=== PATIENT | female | born 1955 | race Caucasian/White ===

== ENCOUNTER 2019-10-10 11:49 | Emergency (ER) | payer BC ==
[2019-10-10 11:54] VITALS: BP 123/68; PULSE 76; TEMP 97.5; BMI 28.0
--- NOTE | 2019-10-10 12:41 | PDOC ---
History of Present Illness - General Chief Complaint: Shortness of Breath Stated Complaint: Shortness of Breath Time Seen by Provider: 10/10/19 12:41 History Source: Patient, Primary Care Provider (Morales) Exam Limitations: No Limitations - History of Present Illness Initial Comments: 10/10/19 12:41 Ania Packer is a 64F with PMH HTN, HLD, Johnathon thyroiditis sent from D Morales office for difficulty breathing. Per Dr. Nielsen, patient came to his office today for routine evaluation and appeared severely short of breath, with pain in her left upper back that was described as deep inside, was immediately concerned for PE and sent patient to ED. Per patient, she had been walking up 3 flights of stairs and became reasonably tired. For the last few days has been cleaning boxes and doing heavy lifting which is the cause of her upper back pain. Exercises routinely and is able to walk long distances without SOB, but finds steep slopes challenging. Denies ever having chest pain, palpitations. No prior cardiac history. Denies lower extremity swelling. Denies asthma, COPD, smoking history, but per chart review from several years ago has COPD. Denies long-distance travel, clotting disorders. 15 years ago had hormone use for menopause, has stopped years ago. 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 NKDA Daily medications thyroid medication, anti-HTN med, statin Past History - Past Medical History Allergies/Adverse Reactions: Allergies Allergy/AdvReac Type Severity Reaction Status Date / Time No Known Allergies Allergy Verified 10/10/19 11:54 Home Medications: Ambulatory Orders Albuterol Sulfate Inhaler - [Ventolin HFA Inhaler -] 1 - 2 inh PO QID PRN #1 inhaler 05/03/16 Anemia: No Asthma: No Cancer: No Cardiac Disorders: No CVA: No COPD: No CHF: No Dementia: No Diabetes: No GI Disorders: Yes ("NERVOUS STOMACH") Disorders: No HTN: No Hypercholesterolemia: Yes Liver Disease: No Seizures: No Thyroid Disease: No - Surgical History Abdominal Surgery: Yes (TUBAL LIGATION) Appendectomy: No Cardiac Surgery: No Cholecystectomy: No Lung Surgery: No Neurologic Surgery: No Orthopedic Surgery: Yes (RIGHT KNEE ARTHROSCOPY) - Psycho Social/Smoking Cessation Hx Smoking Status: No Smoking History: Former smoker Have you smoked in the past 12 months: No Number of Cigarettes Smoked Daily: 0 If you are a former smoker, when did you quit?: 2006 Information on smoking cessation initiated: No Hx Alcohol Use: No Drug/Substance Use Hx: No Substance Use Type: None Hx Substance Use Treatment: No Review of Systems - Review of Systems Able to Perform ROS?: Yes Constitutional: No: Chills, Fever, Weakness HEENTM: No: Eye Pain, Blurred Vision, Ear Discharge, Hearing Loss Respiratory: Yes: SOB with Exertion. No: Cough, Shortness of Breath, Stridor, Wheezing, Productive cough Cardiac (ROS): No: Chest Pain, Irregular Heart Rate, Lightheadedness, Palpitations, Chest Tightness ABD/GI: No: Constipated, Diarrhea, Nausea, Poor Appetite, Poor Fluid Intake, Vomiting : No: Dysuria, Discharge, Frequency, Flank Pain, Hematuria, Incontinence Musculoskeletal: No: Muscle Pain, Muscle Weakness Neurological: No: Headache, Numbness, Paresthesia, Weakness, Ataxia, Dizziness Endocrine: No: Symptoms Reported Hematologic/Lymphatic: No: Symptoms Reported All Other Systems: Reviewed and Negative *Physical Exam - Vital Signs Last Vital Signs Temp Pulse Resp BP Pulse Ox 97.5 F L 76 19 123/68 98 10/10/19 11:52 10/10/19 11:52 10/10/19 11:52 10/10/19 11:52 10/10/19 11:52 - Physical Exam General Appearance: Yes: Nourished, Appropriately Dressed, Other (irritated- appearing, standing in room, breathing well on RA). No: Apparent Distress HEENT: positive: EOMI, BROOKE, Normal Voice, Symmetrical, Pharynx Normal. negative: Scleral Icterus (R), Scleral Icterus (L), Pharyngeal Erythema, Tonsillar Exudate, Tonsillar Erythema Neck: positive: Trachea midline, Normal Thyroid, Supple. negative: Tender, Rigid, Lymphadenopathy (R), Lymphadenopathy (L), Tender lateral, Tender midline Respiratory/Chest: positive: Lungs Clear, Normal Breath Sounds. negative: Chest Tender, Respiratory Distress, Accessory Muscle Use, Crackles, Rales, Rhonchi, Stridor, Wheezing Cardiovascular: positive: Regular Rhythm, Regular Rate. negative: Murmur Gastrointestinal/Abdominal: positive: Normal Bowel Sounds, Flat, Soft. negative : Tender, Pulsatile Mass, Guarding, Rebound, Tenderness Musculoskeletal: positive: Normal Inspection. negative: CVA Tenderness, Vertebral Tenderness Extremity: positive: Normal Capillary Refill, Normal Inspection, Normal Range of Motion, Pelvis Stable. negative: Tender, Pedal Edema, Swelling Integumentary: positive: Normal Color, Dry, Warm. negative: Cyanotic, Cold, Clammy, Ecchymosis Neurologic: positive: Fully Oriented, Alert, Normal Mood/Affect, Normal Response ED Treatment Course - LABORATORY CBC & Chemistry Diagram: 10/10/19 13:30 10/10/19 13:30 Medical Decision Making - Medical Decision Making 10/10/19 13:36 Patient sent from PMD office for concern about PE and SOB with exertion. Patient herself denies any chest pain, SOB at rest, pulmonary history. Chart has history of COPD but not wheezing at this time. Has history of hormone use, but no long distance travel or cancer, cannot PERC. VS WNL in ED, physical exam unremarkable. CTA considered given PMD concern, but patient history not supportive of PE diagnosis. Will obtain D-dimer preliminarily for low-risk Wells. - CMP/CBC for eval lytes and infection - D-dimer for low risk Wells - ECG/CXR for cardiomegaly/pulmonary evaluation 10/10/19 13:45 ECG shows NSR with HR 79, QRS 74, QTc 433, no ischemic changes. 10/10/19 14:30 D-dimer 445, WNL for age. Patient stressed by walking up and down the ED, O2sat 100% and no wheezing noted before or after. Discussed results with patient, stable for discharge. Called Dr. Nielsen, agrees with results and plan for office f/u. Discharge - Discharge Information Problems reviewed: Yes Clinical Impression/Diagnosis: Shortness of breath Condition: Stable - Follow up/Referral Referrals: Grady Nielsen MD [Primary Care Provider] - - Patient Discharge Instructions Patient Printed Discharge Instructions: DI for Shortness of Breath Additional Instructions: Today you were evaluated for shortness of breath. Your labs do not show any problems or blood clot risk. Your x-ray and ECG results are normal. Please continue to follow-up with Dr. Nielsen in the next week for further care. If you experience leg swelling, difficulty breathing, chest pain, coughing, or any other new or concerning symptoms, please return to the emergency room. - Post Discharge Activity
--- NOTE | 2019-10-10 13:45 | PDOC ---
Documentation entered by Gianna Argueta SCRIBE, acting as scribe for Janes Emerson MD. Janes Emerson MD: This documentation has been prepared by the Ellie najera Adrianna, SCRIBE, under my direction and personally reviewed by me in its entirety. I confirm that the documentation accurately reflects all work, treatment, procedures, and medical decision making performed by me. Attending Attestation - Resident Resident Name: Jason Daugherty - ED Attending Attestation I have performed the following: I have examined & evaluated the patient, The case was reviewed & discussed with the resident, I agree w/resident's findings & plan, Exceptions are as noted - HPI HPI: The patient is a 64 year old female, with a significant PMH of HTN, HLD, and Hashimotos, who presents to the ED by her PCP to rule out PE. Dr. Nielsen saw the patient in office earlier today for routine check up, and found the patient to be short of breath with deep left upper back pain. She denies any chest pain or leg swelling at this time. Allergies: NKA, NKDA Surgical History: Tubal ligation, right knee arthroscopy Social History: Former smoker (quit 13 years ago). No toxic habits PCP: Dr. Nielsen - Physicial Exam PE: 10/10/19 13:44 EXAMINATION CONSTITUTIONAL: Well-appearing; well-nourished; in no apparent distress HEAD: Normocephalic; atraumatic EYES: PERRL; EOM intact ENMT: External appears normal; normal oropharynx NECK: Supple; non-tender; no cervical lymphadenopathy CARD: Normal S1, S2; no murmurs, rubs, or gallops RESP: Normal chest excursion with respiration; breath sounds clear and equal bilaterally; no wheezes, rhonchi, or rales ABD: Soft, non-distended; non-tender; no palpable organomegaly, no palpable hernias EXT: Normal ROM in all four extremities; non-tender to palpation; distal pulses intact SKIN: Warm, dry, no rash NEURO: No focal neurological deficiencies. - Medical Decision Making 10/10/19 13:44 Patient is a well-appearing 64-year-old female with a questionable history of asthma/COPD who presents with worsening shortness of breath, most pronounced upon exertion. Patient seen and evaluated by her primary care physician who referred her to the ER. Patient is afebrile, with normal vital signs upon initial evaluation. EKG reveals no evidence of acute ischemia or right-sided heart strain. Patient is low probability for PE by Wells score. Will obtain d- dimer. I do not suspect ACS or CHF at this time. Will obtain chest x-ray to evaluate for cardiomegaly. Will reassess.
[2019-10-10 13:56] LABS: BASO % 0.2 % (0-2.0); EOS % 2.4 % (0-4.5); HEMATOCRIT 37.7 % (32.4-45.2); HEMOGLOBIN 12.6 GM/dL (10.7-15.3); LYMPH % 27.9 % (8-40); MCH 27.6 pg (25.7-33.7); MCHC 33.3 g/dl (32.0-36.0); MEAN CELL VOLUME 82.7 fl (80-96); MEAN PLT VOLUME 7.6 fl (7.5-11.1); MONO % 7.2 % (3.8-10.2); NEUT % 62.3 % (42.8-82.8); PLATELET COUNT 334 K/MM3 (134-434); RBC 4.56 M/mm3 (3.60-5.2); RDW 14.1 % (11.6-15.6); WHITE BLOOD COUNT 7.7 K/mm3 (4.0-10.0)
[2019-10-10 14:38] LABS: BILIRUBIN,TOTAL 0.4 mg/dL (0.2-1); BLOOD UREA NITROGEN 19.8 mg/dL (7-18); CALCIUM 9.3 mg/dL (8.5-10.1); CREATININE 0.9 mg/dL (0.55-1.3); POTASSIUM 4.1 mmol/L (3.5-5.1); TOT PROT 7.6 g/dl (6.4-8.2)
--- NOTE | 2019-10-10 16:33 | EKG ---
Test Reason : Blood Pressure : / mmHG Vent. Rate : 079 BPM Atrial Rate : 079 BPM P-R Int : 140 ms QRS Dur : 074 ms QT Int : 378 ms P-R-T Axes : 018 017 026 degrees QTc Int : 433 ms NORMAL SINUS RHYTHM NORMAL ECG Confirmed by MD GARCIA GREGORY ([id number]) on 10/10/2019 4:32:59 PM Referred By: Confirmed By:WING GARCAI MD
== END 2019-10-10 14:44 | disposition home or self-care (01) ==
LOC: JER 11:49
DX: R06.02 Shortness of breath (principal)
CPT/HCPCS: 36415; 71046-TC-FY; 80053; 85025; 85379; 93005; 93010; 99285-25

== ENCOUNTER 2021-08-17 14:02 | Emergency (ER) | payer OTHER, BC ==
[2021-08-17 14:09] VITALS: BP 118/72; PULSE 90; TEMP 97.7; BMI 25.5
[2021-08-17] MEDS ORDERED: ONDANSETRON 4 MG/2 ML VIAL IVPUSH ONE (17:29)
[2021-08-17] MEDS ORDERED: LACTATED RINGERS SOLUTION 1000 ML INFUS.BAG IV ONE (17:29)
[2021-08-17] MEDS ORDERED: ACETAMINOPHEN 1000 MG/100 ML BAG IVPB ONE (17:29)
[2021-08-17] MEDS ORDERED: ONDANSETRON 4 MG/2 ML VIAL ONE (18:56)
[2021-08-17] MEDS ORDERED: ACETAMINOPHEN INJECTION 100 ML IVPB ONE (18:56)
[2021-08-17 20:32] LABS: BASO % 0.3 % (0-2.0); EOS % 1.4 % (0-4.5); HEMATOCRIT 38.5 % (32.4-45.2); HEMOGLOBIN 12.6 GM/dL (10.7-15.3); LYMPH % 32.2 % (8-40); MCH 27.1 pg (25.7-33.7); MCHC 32.8 g/dl (32.0-36.0); MEAN CELL VOLUME 82.7 fl (80-96); MEAN PLT VOLUME 7.8 fl (7.5-11.1); MONO % 6.5 % (3.8-10.2); NEUT % 59.6 % (42.8-82.8); PLATELET COUNT 334 10^3/uL (134-434); RBC 4.66 M/mm3 (3.60-5.2); RDW 13.5 % (11.6-15.6); WHITE BLOOD COUNT 6.6 K/mm3 (4.0-10.0)
[2021-08-17 20:53] LABS: BLOOD UREA NITROGEN 17.2 mg/dL (7-18); CALCIUM 9.2 mg/dL (8.5-10.1)
[2021-08-17 20:54] LABS: ALBUMIN 4.1 g/dl (3.4-5.0); MAGNESIUM 2.3 mg/dL (1.8-2.4)
[2021-08-17 20:56] LABS: CREATININE 0.9 mg/dL (0.55-1.3)
[2021-08-17 20:58] LABS: BILIRUBIN,TOTAL 0.3 mg/dL (0.2-1); TOT PROT 7.6 g/dl (6.4-8.2)
[2021-08-17] MEDS ORDERED: KETOROLAC TROMETHAMINE 15 MG/ML VIAL IVPUSH ONE (21:44)
[2021-08-17] MEDS ORDERED: LIDOCAINE 5% TOPICAL PATCH TP ONE (21:45)
[2021-08-17] MEDS ORDERED: LIDOCAINE 5% TOPICAL PATCH ONE (21:46)
[2021-08-17] MEDS ORDERED: KETOROLAC TROMETHAMINE 15 MG/ML VIAL ONE (21:47)
[2021-08-17] MEDS ORDERED: LIDOCAINE PATCH REMOVAL MC SCH (22:00)
[2021-08-17 22:20] LABS: EPI CELLS 8 /uL (0-25.1); HYALINE CASTS 0 /uL (0-3.1); PH,URINE 5.5 (5.0-8.0); URINE APPEARANCE CLEAR; URINE BACTERIA 90 /uL (0-1359); URINE BILIRUBIN NEGATIVE (NEGATIVE); URINE COLOR YELLOW; URINE GLUCOSE (UA) NEGATIVE (NEGATIVE); URINE KETONE NEGATIVE (NEGATIVE); URINE LEUK ESTERASE 2+ (NEGATIVE); URINE NITRITE NEGATIVE (NEGATIVE); URINE PROTEIN NEGATIVE (NEGATIVE); URINE RBC 8 /uL (0-23.9); URINE UROBILINOGEN 0.2 mg/dL (0.2-1.0); URINE WBC 81 /uL (0-25.8)
== END 2021-08-17 22:19 | disposition home or self-care (01) ==
LOC: JER 14:02
PROC: 3E0333Z Introduction of Anti-inflammatory into Peripheral Vein, Percutaneous Approach (ICD-10-PCS; principal; 2021-08-17)
PROC: 3E0333Z Introduction of Anti-inflammatory into Peripheral Vein, Percutaneous Approach (ICD-10-PCS; 2021-08-17)
PROC: 3E033GC Introduction of Other Therapeutic Substance into Peripheral Vein, Percutaneous Approach (ICD-10-PCS; 2021-08-17)
DX: R10.9 Unspecified abdominal pain (principal)
CPT/HCPCS: 36415; 74176-TC; 76705-TC; 80053; 81003; 83690; 83735; 85025; 87086; 99285-25; C9803; J0131; U0003; U0005

== ENCOUNTER 2021-09-02 15:50 | Emergency (ER) | payer OTHER, BC ==
[2021-09-02 16:11] VITALS: BP 128/88; PULSE 82; TEMP 98; BMI 25.5
[2021-09-02] MEDS ORDERED: LIDOCAINE HCL 2% (20ML MULTI-DOSE VIAL) ONE (16:12)
[2021-09-02] MEDS ORDERED: DIPHTH,PERTUSS(ACELL),TET 0.5 ML DISP.SYRIN IM ONE ×2 (16:26→16:47)
[2021-09-02] MEDS ORDERED: AMOX TR/POT CLAV 875MG/125MG TABLETS (FP) ONE (17:40)
[2021-09-02] MEDS ORDERED: AMOX TR/POT CLAV 875MG/125MG TABLETS (FP) PO ONE (17:41)
== END 2021-09-02 17:49 | disposition home or self-care (01) ==
LOC: FER 15:50
PROC: 0CQ03ZZ Repair Upper Lip, Percutaneous Approach (ICD-10-PCS; principal; 2021-09-02)
PROC: 3E0234Z Introduction of Serum, Toxoid and Vaccine into Muscle, Percutaneous Approach (ICD-10-PCS; 2021-09-02)
DX: S02.5XXA Fracture of tooth (traumatic), initial encounter for closed fracture (principal); S01.419A Laceration without foreign body of unspecified cheek and temporomandibular area, initial encounter; W19.XXXA Unspecified fall, initial encounter; Y92.9 Unspecified place or not applicable
CPT/HCPCS: 12011-25; 90471; 90715; 99284-25

== ENCOUNTER 2021-09-09 19:35 | Emergency (ER) | payer OTHER, BC ==
[2021-09-09 19:47] VITALS: BP 124/86; PULSE 68; TEMP 97.8; BMI 25.4
== END 2021-09-09 19:55 | disposition home or self-care (01) ==
LOC: FER 19:35
DX: Z48.02 Encounter for removal of sutures (principal)
CPT/HCPCS: 99281-25

== ENCOUNTER 2023-05-15 12:45 | Emergency (ER) | payer OTHER, BC ==
[2023-05-15 13:04] VITALS: BP 150/95; PULSE 91; RESP 18; TEMP 98.7; BMI 24.9
[2023-05-15] MEDS ORDERED: ONDANSETRON 4 MG/2 ML VIAL IVPUSH ONE (13:21)
[2023-05-15] MEDS ORDERED: SODIUM CHLORIDE 1,000 ML IV STA (13:21)
[2023-05-15] MEDS ORDERED: KETOROLAC TROMETHAMINE 30 MG/1 ML VIAL IVPUSH ONE (13:21)
[2023-05-15] MEDS ORDERED: KETOROLAC TROMETHAMINE 15 MG/ML VIAL IVPUSH ONE (13:37)
[2023-05-15] MEDS ORDERED: ONDANSETRON 4 MG/2 ML VIAL ONE (13:40)
[2023-05-15] MEDS ORDERED: KETOROLAC TROMETHAMINE 15 MG/ML VIAL ONE (13:41)
[2023-05-15 14:27] LABS: HEMATOCRIT 42.3 % (32.4-45.2); MCH 27.6 pg (25.7-33.7); MCHC 33.1 g/dl (32.0-36.0); MEAN CELL VOLUME 83.3 fl (80-96); MEAN PLT VOLUME 7.4 fl (7.5-11.1); PLATELET COUNT 354.9 10^3/uL (134-434); RBC 5.08 10^6/uL (3.60-5.2); RDW 14.6 % (11.6-15.6); WHITE BLOOD COUNT 15.4 10^3/uL (4.0-10.8)
[2023-05-15 14:42] LABS: INR 1.02 (0.83-1.09); PROTHROMBIN TIME (PATIENT) 11.8 SEC (9.7-13.0)
[2023-05-15 14:47] LABS: ALBUMIN 4.9 g/dl (3.4-5.0); BILIRUBIN,TOTAL 0.6 mg/dl (0.2-1); BLOOD UREA NITROGEN 18.8 mg/dl (7-18); CALCIUM 10.2 mg/dl (8.5-10.1); CREATININE 1.3 mg/dl (0.6-1.3); POTASSIUM 3.9 mmol/L (3.5-5.1); SGOT/AST 22.5 U/L (15-37); SGPT/ALT 23.1 U/L (7-52); TOT PROT 8.3 g/dl (6.4-8.2)
[2023-05-15] MEDS ORDERED: CEFTRIAXONE 1 GM in DEXTROSE 5%-WATER - 100 ML IVPB ONE (15:06)
[2023-05-15] MEDS ORDERED: cefTRIAXone SODIUM 1 GM VIAL ONE (15:16)
[2023-05-15 15:32] LABS: EPITHELIAL CELLS FEW /hpf
== END 2023-05-15 16:25 | disposition home or self-care (01) ==
LOC: FER 12:45
PROC: 3E03329 Introduction of Other Anti-infective into Peripheral Vein, Percutaneous Approach (ICD-10-PCS; principal; 2023-05-15)
PROC: 3E0333Z Introduction of Anti-inflammatory into Peripheral Vein, Percutaneous Approach (ICD-10-PCS; 2023-05-15)
PROC: 3E033GC Introduction of Other Therapeutic Substance into Peripheral Vein, Percutaneous Approach (ICD-10-PCS; 2023-05-15)
PROC: 3E0337Z Introduction of Electrolytic and Water Balance Substance into Peripheral Vein, Percutaneous Approach (ICD-10-PCS; 2023-05-15)
DX: R10.30 Lower abdominal pain, unspecified (principal); N20.0 Calculus of kidney; N12 Tubulo-interstitial nephritis, not specified as acute or chronic
CPT/HCPCS: 36415; 74176-TC; 80053; 81003; 81015; 85027; 85610; 87086; 99284-25